=== PATIENT | male | born 1985 | race Caucasian/White ===

== ENCOUNTER 2021-11-13 19:33 | Emergency (ER) | payer OTHER ==
[~2021-11-13] VITALS: Ht 170.2 cm; Wt 95.5 kg
[2021-11-13 20:18] VITALS: BP 116/64
== END 2021-11-14 01:53 | disposition home or self-care (01) ==
LOC: ER 19:34
DX: Z13.89 Encounter for screening for other disorder (principal); Z98.890 Other specified postprocedural states
CPT/HCPCS: 99281